=== PATIENT | male | born 1940 | race Caucasian/White ===

== ENCOUNTER 2018-10-20 17:54 | Emergency (ER) | payer MEDICARE ==
[~2018-10-20] VITALS: Ht 182.9 cm; Wt 89.4 kg
[~2018-10-20 17:54] MED LIST: ALBU90I INH; AMOCLA875 PO; ASPI81CH PO; ASPI81EC; ASPI81EC PO; ATOR10 PO; BACL10; CITA20; CITA20 PO; CLOP75 PO; CYCL10 PO; Carvedilol3.125 MG PO; DIPASPER; DIPASPER PO; DOC250 PO; DOCU100; DOCU100 PO; FERR325 PO; FURO20 PO; GABA300; GABA300 PO; GABA600 PO; INSN100I; INSN100I SC; INSR10I SC; INSU100I6 SC; INSULANPEN SC; LEVSOD100 PO; LISI10; LISI10 PO; LISI5 PO; METH10; METH10 PO; METO100ER PO; METO50ER; MIRT15 PO; MIRT30 PO; MORP15ER PO; MULVITA PO; MULVITMINE PO; Mucinex600 MG PO; OMEP20ER PO; OMEPRAZOLE MAGN20 MG PO; OXYC1L PO; OXYC5 PO; RANI150 PO; ROPI.25 PO; SENN187; SERT100 PO; SIMV20; SIMV20 PO; SIMV40 PO; SULI200; Senna Laxative8.6 MG PO; TERA2 PO; VARDENAFIL; Ventolin Soln3 ML INH; XOPENEX
[2018-10-20] MEDS ORDERED: ELIQUIS2.5 MG PO (18:13)
[2018-10-20] MEDS ORDERED: METF500 PO (18:14)
[2018-10-20] MEDS ORDERED: LEVSOD100 PO (18:16)
[2018-10-20] MEDS ORDERED: Cymbalta20 MG PT (18:16)
[2018-10-20 18:46] LABS: BASOPHILS ABSOLUTE AUTO 0.05 K/mm3 (0.00-0.23); BASOPHILS PERCENT AUTO 1 % (0-2); EOSINOPHILS ABSOLUTE AUTO 0.31 K/mm3 (0.00-0.68); EOSINOPHILS PERCENT AUTO 4 % (0-6); Hematocrit 31.2 % (37.0-53.0); Hemoglobin 10.3 g/dL (13.5-17.5); IMMATURE GRAN ABSOLUTE AUTO 0.04 K/mm3 (0.00-0.10); IMMATURE GRAN PERCENT AUTO 1 % (0-1); LYMPHOCYTES ABSOLUTE AUTO 2.81 K/mm3 (0.84-5.20); LYMPHOCYTES PERCENT AUTO 34 % (21-46); MONOCYTES ABSOLUTE AUTO 0.67 K/mm3 (0.16-1.47); MONOCYTES PERCENT AUTO 8 % (4-13); Mean Corpuscular HGB 30.7 pg (26.0-34.0); Mean Corpuscular Volume 93 fL (80-100); Mean Platelet Volume 10.8 fL (9.1-12.4); NEUTROPHILS ABSOLUTE AUTO 4.51 K/mm3 (1.96-9.15); NEUTROPHILS PERCENT AUTO 54 % (41-73); Platelet Count 214 K/mm3 (150-400); RDW Coefficient Variation 12.4 % (11.7-14.2); RDW Standard Deviation 42.5 fL (35.1-46.3); Red Blood Cell Count 3.36 M/mm3 (4.30-5.90); White Blood Cell Count 8.39 K/mm3 (4.00-11.30)
[2018-10-20 19:15] LABS: Alanine Aminotransfer (ALT/SGP 17 U/L (12-78); Albumin, Blood 3.4 g/dL (3.4-5.0); Albumin/Globulin Ratio 0.9 (0.8-1.8); Alk Phos 115 U/L (50-136); Anion Gap 7 mmol/L (6-16); Aspartate Aminotrans (AST/SGOT 17 U/L (12-37); Bilirubin, Total 0.3 mg/dL (0.1-1.0); Blood Urea Nitrogen 23 mg/dL (8-24); Bun/Creatinine Ratio 26.5 (12.0-20.0); CO2, Blood 27 mmol/L (21-32); Calcium, Blood 8.7 mg/dL (8.5-10.1); Chloride, Blood 102 mmol/L (98-108); Creatinine, Blood 0.87 mg/dL (0.60-1.20); Globulin, Blood 3.8 g/dL (2.2-4.0); Glomerular Filtration Rate >60 (60-); Glucose, Blood 539 mg/dL (70-99); Potassium, Blood 4.6 mmol/L (3.5-5.5); Sodium, Blood 136 mmol/L (136-145); Total Protein, Blood 7.2 g/dL (6.4-8.2)
== END 2018-10-20 21:47 | disposition home or self-care (01) ==
LOC: ER 17:54
PROVIDERS: Emergency Medicine
DX: M79.89 Other specified soft tissue disorders (principal); E11.9 Type 2 diabetes mellitus without complications; I11.0 Hypertensive heart disease with heart failure; I50.9 Heart failure, unspecified; D64.9 Anemia, unspecified; I25.10 Atherosclerotic heart disease of native coronary artery without angina pectoris; M79.622 Pain in left upper arm; Z95.0 Presence of cardiac pacemaker; Z88.6 Allergy status to analgesic agent; Z88.8 Allergy status to other drugs, medicaments and biological substances; Z91.048 Other nonmedicinal substance allergy status; Z79.4 Long term (current) use of insulin; Z79.899 Other long term (current) drug therapy; Z87.891 Personal history of nicotine dependence
CPT/HCPCS: 36415; 71260; 80053; 82947; 85025; 93005; 93010; 93971; 99284-25; J1815; Q9967

== ENCOUNTER 2020-01-02 03:30 | Inpatient (IN) | payer OTHER, MEDICARE ==
[~2020-01-02] VITALS: Ht 177.8 cm; Wt 90.7 kg
[~2020-01-02 03:30] MED LIST changes: +ALBU2.5V5 INH; -ATOR10 PO; +ATOR20 PO; +BASAGLAR K100 UNIT/1 SC; +Cymbalta20 MG PO; +ELIQUIS2.5 MG PO; +GUAI200 PO; +METF500 PO; -Mucinex600 MG PO; -Ventolin Soln3 ML INH
[2020-01-02 03:54] LABS: PCO2 Arterial 34.1 mmHg (35-45); PO2 Arterial 72.8 mmHg (80-100); pH Blood Arterial 7.37 (7.35-7.45)
[2020-01-02 04:00] LABS: BASOPHILS ABSOLUTE AUTO 0.05 K/mm3 (0.00-0.23); BASOPHILS PERCENT AUTO 0 % (0-2); EOSINOPHILS PERCENT AUTO 0 % (0-6); Hemoglobin 11.4 g/dL (13.5-17.5); IMMATURE GRAN ABSOLUTE AUTO 0.08 K/mm3 (0.00-0.10); IMMATURE GRAN PERCENT AUTO 1 % (0-1); LYMPHOCYTES ABSOLUTE AUTO 2.15 K/mm3 (0.84-5.20); LYMPHOCYTES PERCENT AUTO 12 % (21-46); MONOCYTES ABSOLUTE AUTO 2.07 K/mm3 (0.16-1.47); MONOCYTES PERCENT AUTO 12 % (4-13); Mean Corpuscular HGB 29.2 pg (26.0-34.0); Mean Corpuscular HGB Conc 31.7 g/dL (31.5-36.5); Mean Corpuscular Volume 92 fL (80-100); Mean Platelet Volume 11.6 fL (9.1-12.4); NEUTROPHILS ABSOLUTE AUTO 13.29 K/mm3 (1.96-9.15); NEUTROPHILS PERCENT AUTO 75 % (41-73); Platelet Count 297 K/mm3 (150-400); RDW Coefficient Variation 13.1 % (11.7-14.2); White Blood Cell Count 17.64 K/mm3 (4.00-11.30)
[2020-01-02 04:43] LABS: Albumin, Blood 3.3 g/dL (3.4-5.0); Albumin/Globulin Ratio 0.8 (0.8-1.8); Bilirubin, Total 0.6 mg/dL (0.1-1.0); Bun/Creatinine Ratio 44.7 (12.0-20.0); Calcium, Blood 9.8 mg/dL (8.5-10.1); Creatinine, Blood 1.59 mg/dL (0.60-1.20); Globulin, Blood 4.4 g/dL (2.2-4.0); Potassium, Blood 5.1 mmol/L (3.5-5.5); Total Protein, Blood 7.7 g/dL (6.4-8.2)
[2020-01-02 05:12] LABS: Influenza A, PCR Negative (NEGATIVE); Influenza B, PCR Negative (NEGATIVE); Resp Syncytial Virus, PCR Negative (NEGATIVE); SARS-Cov-2 (COVID-19) PCR, MMC Negative (NEGATIVE)
[2020-01-02 08:48] LABS: Glucose, Blood 1006 mg/dL (70-99)
[2020-01-02] MEDS ORDERED: METF500 PO (10:53)
[2020-01-02 10:57] LABS: Glucose, Blood 870 mg/dL (70-99)
[2020-01-02] MEDS ORDERED: FERSU300 PO (10:57)
[2020-01-02] MEDS ORDERED: FURO20 PO (10:58)
[2020-01-02 13:16] LABS: Glucose, Blood 641 mg/dL (70-99)
--- NOTE | 2020-01-02 15:51 | NUR ---
MED REC COMPLETE, DONE BY THIS RN WITH PATIENT'S SPOUSE OVER PHONE.
[2020-01-02 16:37] LABS: Glucose, Blood 484 mg/dL (70-99)
--- NOTE | 2020-01-02 17:14 | NUR ---
PATIENT ARRIVED TO UNIT SHORTLY BEFORE SHIFT CHANGE THIS MORNING. PATIENT IS CONFUSED, RESPONDS POSITIVELY BY NODDING TO YES OR NO QUESTIONS, DOES NOT RESPOND APPROPRIATELY. NON-REBREATHER APPLIED TO STOMA THIS SHIFT, ABLE TO TITRATE DOWN TO 1.5 L, RECEIVED BREATHING TREATMENTS PER RT. PATIENT DOES NOT APPEARIN ACUTE DISTRESS THIS SHIFT, VSS. PATIENT NPO, NO ABLE TO FOLLOW COMMANDS. PATIENT WILL SLIDE DOWN IN BED, HAS TRIED TO GET OUT OF BED AT TIMES, REDIRECTABLE. BED ALARM ON. PATIENT HYPERGLYCEMIC THIS SHIFT, 1006 BLOOD GLUCOSE PER LAB DRAW, NOW DOWN TO 400S. LACTIC ACID RETURNED TO NORMAL RANGE. ABRASION NOTED ON LEFT QURESHI, PER SPOUSE REPORT VIA PHONE THE PATIENT HAS BEEN FALLING A LOT RECENTLY.
--- NOTE | 2020-01-02 19:00 | NUR ---
OPENING NOTE RECEIVED REPORT FROM KADEEM RN AT THE BEDSIDE. PT IS RESTING, OPENS EYES TO VOICE, DOES NOT ATTEMPT TO VOCALIZE BUT SHAKES HEAD "YES" TO INTRODUCTION. TRACH COLLAR BLOWBY IN PLACE OVER STOMA WITH 1.5 L O2. NO ACUTE CONCERNS AT THIS TIME, WILL CONTINUE PLAN OF CARE AND CONTINUE TO MONITOR.
[2020-01-03 04:32] LABS: BASOPHILS ABSOLUTE AUTO 0.04 K/mm3 (0.00-0.23); BASOPHILS PERCENT AUTO 0 % (0-2); EOSINOPHILS ABSOLUTE AUTO 0.04 K/mm3 (0.00-0.68); EOSINOPHILS PERCENT AUTO 0 % (0-6); Hematocrit 32.2 % (37.0-53.0); Hemoglobin 10.5 g/dL (13.5-17.5); IMMATURE GRAN ABSOLUTE AUTO 0.05 K/mm3 (0.00-0.10); IMMATURE GRAN PERCENT AUTO 0 % (0-1); LYMPHOCYTES ABSOLUTE AUTO 2.24 K/mm3 (0.84-5.20); LYMPHOCYTES PERCENT AUTO 18 % (21-46); MONOCYTES ABSOLUTE AUTO 1.21 K/mm3 (0.16-1.47); MONOCYTES PERCENT AUTO 10 % (4-13); Mean Corpuscular HGB 29.3 pg (26.0-34.0); Mean Corpuscular HGB Conc 32.6 g/dL (31.5-36.5); Mean Corpuscular Volume 90 fL (80-100); Mean Platelet Volume 11.4 fL (9.1-12.4); NEUTROPHILS ABSOLUTE AUTO 8.67 K/mm3 (1.96-9.15); NEUTROPHILS PERCENT AUTO 71 % (41-73); Platelet Count 241 K/mm3 (150-400); RDW Coefficient Variation 13.1 % (11.7-14.2); RDW Standard Deviation 42.3 fL (35.1-46.3); Red Blood Cell Count 3.58 M/mm3 (4.30-5.90); White Blood Cell Count 12.25 K/mm3 (4.00-11.30)
--- NOTE | 2020-01-03 04:39 | NUR ---
COMMUNICATION TECHNICIAN SUMMARY NO ACUTE CHANGES THIS SHIFT. PT AAOX2, HAS DIFFICULTY SPEAKING AND COMMUNICATING NEEDS TO STAFF. CBG'S Q4H, LONG ACTING INSULIN HELD AT HS BY HEALTHCARE REPRESENTATIVESINA MCGOWAN PT CBG WAS DECREASING AND PT IS NPO. DID RECIEVE HS HUMALOG DOSE OF 7 UNITS WHICH BROUGHT CBG DOWN TO 150'S AT 0000. HELD MIDNIGHT DOSE OF HUMALOG CBG HAD SIGNIFICANT DECREASE SINCE HS AND PT REMIANS NPO, HOWEVER AT 0400 CBG 249 AND INSULIN GIVEN. PT CONTINUES TO HAVE LARGE AMOUNTS OF THICK SPUTUM PRODUCTION, ASSISTED WITH SUCTIONING OF LARYNGEAL STOMA. VSS, WILL CONTINUE TO MONITOR.
[2020-01-03 04:53] LABS: Bun/Creatinine Ratio 53.6 (12.0-20.0); Calcium, Blood 9.5 mg/dL (8.5-10.1); Creatinine, Blood 1.25 mg/dL (0.60-1.20); Potassium, Blood 3.8 mmol/L (3.5-5.5)
--- NOTE | 2020-01-03 10:13 | NUR ---
REPORT GIVEN TO ARAM ANDINO ON MEDICAL.
--- NOTE | 2020-01-03 11:26 | NUR ---
PATIENT ARRIVES ABOUT 1045 FROM PCU VIA W/C. MOUTH READS. SPEECH THERAPY TO EVAL AND CLEAN STOMA AREA. 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 LUNGS DIM T/O. OXYGEN CHANGED TO HUMIDIFIED. IV FLUIDS CHANGED TO MAINTENANCE FLUIDS 1/2 NS AT 50ML/HR. TINY SCABS T/O. COOPERATIVE. GIVEN SMALL WHITE BOARD TO WRITE ON. NPO.WCTM.
--- NOTE | 2020-01-03 16:29 | NUR ---
ALERT. ORIENTED SELF, WHERE HE IS AND FAMILY. GIVEN WHITE BOARD TO COMMUNICATE BUT DOES NOT WRITE VERY WELL. TRACHEAL ESOPHAGEAL VALVE NEEDS REPLACING AND WILL BE DONE IN [place] WHEN PATIENT STABLE. R.T. DOES DEEP TRACHEAL SUCTIONING. NG 16 POLISH PLACED AFTER RN UNABLE TO PLACE DOBHOFF. UNABLE TO HEAR AIR IN THRU TUBE, XRAY SHOWS OPENING LITTLE HIGH, SO ADVANCED LITTLE. ABLE TO HEAR AIR THRU TUBE AFTER ADVANCEMENT. XRAY REORDERED. HALI JAVA JSF DEVELOPER ORDERED TUBE FEEDING AND WILL START WHEN XRAY DONE. HUMIDIFIED OXYGEN TO STOMA. WCTM.
--- NOTE | 2020-01-03 19:25 | NUR ---
ASSUMED CARE RECEIVED REPORT FROM SINA BLAKELY. ASSUMED CARE OF PT. RESTING COMFORTABLY, NO S/S ACUTE DISTRESS NOTED. GLUCERNA 1.2 MOISÉS RUNNING AT 25ML/HR, NG TUBE IN PLACE. RESPS EVEN AND UNLABORED. PT DENIES NEEDS. CALL LIGHT, POSSESSIONS IN REACH, BED IN LOW POSITION WITH ALARMS ON. WCTM.
[2020-01-04 05:25] LABS: BASOPHILS ABSOLUTE AUTO 0.04 K/mm3 (0.00-0.23); BASOPHILS PERCENT AUTO 0 % (0-2); EOSINOPHILS ABSOLUTE AUTO 0.12 K/mm3 (0.00-0.68); EOSINOPHILS PERCENT AUTO 1 % (0-6); Hematocrit 34.1 % (37.0-53.0); Hemoglobin 10.6 g/dL (13.5-17.5); IMMATURE GRAN ABSOLUTE AUTO 0.09 K/mm3 (0.00-0.10); IMMATURE GRAN PERCENT AUTO 1 % (0-1); LYMPHOCYTES ABSOLUTE AUTO 2.91 K/mm3 (0.84-5.20); LYMPHOCYTES PERCENT AUTO 24 % (21-46); MONOCYTES ABSOLUTE AUTO 1.11 K/mm3 (0.16-1.47); MONOCYTES PERCENT AUTO 9 % (4-13); Mean Corpuscular HGB Conc 31.1 g/dL (31.5-36.5); Mean Corpuscular Volume 93 fL (80-100); Mean Platelet Volume 12.1 fL (9.1-12.4); NEUTROPHILS ABSOLUTE AUTO 7.83 K/mm3 (1.96-9.15); NEUTROPHILS PERCENT AUTO 65 % (41-73); Platelet Count 222 K/mm3 (150-400); RDW Coefficient Variation 13.3 % (11.7-14.2); RDW Standard Deviation 44.9 fL (35.1-46.3); Red Blood Cell Count 3.66 M/mm3 (4.30-5.90)
[2020-01-04 05:35] LABS: Anion Gap 5 mmol/L (6-16); Blood Urea Nitrogen 49 mg/dL (8-24); Bun/Creatinine Ratio 59.8 (12.0-20.0); CO2, Blood 27 mmol/L (21-32); Calcium, Blood 9.8 mg/dL (8.5-10.1); Chloride, Blood 123 mmol/L (98-108); Creatinine, Blood 0.82 mg/dL (0.60-1.20); Glomerular Filtration Rate >60 (60-); Glucose, Blood 250 mg/dL (70-99); Phosphorus, Blood 2.2 mg/dL (2.5-4.9); Potassium, Blood 3.8 mmol/L (3.5-5.5); Sodium, Blood 155 mmol/L (136-145)
--- NOTE | 2020-01-04 07:20 | NUR ---
SHIFT SUMMARY PT ASLEEP, NO S/S ACUTE DISTRESS NOTED. PT TOLERATED TF WELL T/O NIGHT, GLUCERNA 1.2 MOISÉS RUNNING AT 35ML/HR, NG TUBE REMAINS IN PLACE. VS REVIEWED, STABLE. CBGS STABLE IN THE 200'S, COVERED WITH INSULIN PER EMAR. PT MEDICATED X1 FOR PAIN WITH EFFECTIVE RELIEF. PT DENIES NEEDS AT THIS TIME. CALL LIGHT, POSSESSIONS IN REACH, BED IN LOW POSITION WITH ALARMS ON. REPORT GIVEN TO SINA BLAKELY.
--- NOTE | 2020-01-04 09:48 | NUR ---
TUBE FEEDING CHANGED TO 55ML/HR. PATIENT WANTS TO GO HOME. WHEN ASKED HOW HE IS GOING TO TAKE HIS MEDS, PATIENT MAKES A GESTURE THAT HE WILL TAKE BY MOUTH. EXPLAINED TO PATIENT THAT HIS ESOPHAGEAL VALVE IS LEAKING SO HE CAN'T. ANYTHING HE TAKES IN BY MOUTH MAY GO INTO HIS LUNGS. PATIENT SHAKES HIS HEAD NO. IS COMING IN. WILL CALL TO LET HIM KNOW .
--- NOTE | 2020-01-04 14:32 | NUR ---
REPORT GIVEN TO JILLIAN ANDINO AND MOVED TO [id number]. HAS ALSO ARRIVED. PATIENT WITH MULTIPLE FALLS AT HOME AND DOES NOT ASK FOR ASSISTANCE. PATIENT GETS OUT BED TO CHAIR AND BACK OFTEN WITH ALARMS GOING OFF. PATIENT DOES NOT LEAVE THE HOB AT 45 DEGREES OR HIGHER. RN LOCKS OUT PATIENT SIDE FROM MOVEMENT, BUT SOMEHOW PATIENT HAS BEEN ABLE TO CHANGE HOB ANGLE. FEELS PATIENT CAN NOT ASPIRATE EVEN WHEN FLAT DUE TO LARNGEAL ESOPHAHUS VALVE BEING IN PLACE. TO TALK TO . SPEECH THERAPY, STEFANO ERAZO, WILL COME UP AND ALSO TALK TO .
--- NOTE | 2020-01-04 17:25 | NUR ---
SHIFT SUMMARY: ASSUMED CARE OF PATIENT AT 1432 UPON HIS TRANSFER FROM BED 354. PT ALERT, NON VERBAL D/T LARYNGEAL RESECTION AND ELP; HAS DRY ERASE BOARD TO MAKE HIS NEEDS KNOWN. C/O PAIN IN HEAD AND CHEST; MEDICATED PER EMAR WITH ADEQUATE RELIEF. BREATH SOUNDS ARE VERY COARSE AND MOIST. WEARING O2 @ 2 L/MIN FROM TRACH MASK. HAS URINARY FREQUENCY, GETS UP OFTEN TO VOID. STRENGTH IS QUESTIONABLE, HAS FALLEN OFTEN AT HOME. TOLERATING TF, NO RESIDUAL. DECLINED OFFERED ASSISTANCE WITH ORAL CARE. EDUCATED PATIENT THAT IF HE RECEIVES NARCOTIC PAIN MEDS ON A REGULAR BASIS HE WILL BECOME MORE CONSTIPATED; NODDED IN AGREEMENT TO EXTRA BOWEL MEDS. IS RESTING AT THIS TIME.
--- NOTE | 2020-01-05 04:02 | NUR ---
SHIFT SUMMARY: VSS. AFEB. AAOX3. PT OPTING NOT TO USE WHITE BOARD TO COMMUNICATE, MOUTHS WORDS AND NODS "YES" OR "NO" TO QUESTIONS. USES CALL LIGHT OCCASIONALLY AND NOT RELIABLY. TF INFUSING CONTINUOUSLY VIA NGT. RESIDUAL 0MLS, TF INCREASED TO ORDER RATE OF 65MLS/HR. PT MANUEL WELL. 02 92% W/ 2L HUMIDIFIED 02 VIA TRACH. EXERTIONAL DYSPNEA NOTED EACH TIME PT STANDS AT BEDSIDE TO VOID. WET SOUNDING COUGH PRODUCING SMALL AMT OF YELLOW GREEN SPUTUM FROM STOMA SITE. PT IS CLEARING AIRWAY W/ STRONG COUGH, NO SUCTIONING OF AIRWAY NEEDED SO FAR TONIGHT. WILL CONT TO MONITOR PT.
[2020-01-05 05:28] LABS: Hematocrit 33.1 % (37.0-53.0); Mean Corpuscular HGB 28.4 pg (26.0-34.0); Mean Corpuscular HGB Conc 30.2 g/dL (31.5-36.5); Mean Corpuscular Volume 94 fL (80-100); Mean Platelet Volume 11.9 fL (9.1-12.4); Platelet Count 186 K/mm3 (150-400); RDW Coefficient Variation 13.5 % (11.7-14.2); RDW Standard Deviation 46.2 fL (35.1-46.3); Red Blood Cell Count 3.52 M/mm3 (4.30-5.90); White Blood Cell Count 8.73 K/mm3 (4.00-11.30)
[2020-01-05] MEDS ORDERED: MULVITA PO (05:33)
[2020-01-05] MEDS ORDERED: GLUCERNA PO (05:34)
[2020-01-05] MEDS ORDERED: NYSTATIN100000 UN1 PO (05:36)
[2020-01-05] MEDS ORDERED: MIRALAX17 GM PO (05:37)
[2020-01-05 05:50] LABS: Anion Gap 3 mmol/L (6-16); Blood Urea Nitrogen 34 mg/dL (8-24); Bun/Creatinine Ratio 50.1 (12.0-20.0); CO2, Blood 28 mmol/L (21-32); Calcium, Blood 9.2 mg/dL (8.5-10.1); Chloride, Blood 118 mmol/L (98-108); Creatinine, Blood 0.68 mg/dL (0.60-1.20); Glomerular Filtration Rate >60 (60-); Glucose, Blood 291 mg/dL (70-99); Potassium, Blood 3.7 mmol/L (3.5-5.5); Sodium, Blood 149 mmol/L (136-145)
--- NOTE | 2020-01-05 19:32 | NUR ---
SHIFT SUMMARY- PT IS A/O, PLESANT AND COOPERATIVE. HE IS NPO, RECIEVING FEEDINGS THROUGH THE NG TUBE. HE HAS A HARSH COUGH, CLEANED STOMA SEVERAL TIMES THIS SHIFT. HE RECIEVED SUCTION, LEFT SUCTION WITHIN PT REACH. HE IS USIING THE URINAL. PROVIDED BOWEL CARE. NO BM OF YET.
--- NOTE | 2020-01-06 04:57 | NUR ---
SHIFT SUMMARY: PT REFUSED INITIAL VS CHECK TONIGHT. AA0X3. REPORTING STOMACH TENDERNESS DUE TO NO CONSTIPATION. ENCOURAGED PT TO ACCEPT ENEMA, BUT HE REFUSED. PT DID REQUEST TO USE BSC AND PRODUCED AN XLG, DARK BROWN, SOFT BM. FEELING NAUSEAS AT THE TIME, ZOFRAN GIVEN W/ GOOD RESULTS, T/F PAUSED FOR 30MIN WHILE PT NAUSEAUS. RESUMED TF WITH NO RETURN OF NAUSEA. PT HAS SINCE BEEN SLEEPING. LSCTA. NO RESP DISTRESS. EXERTIONAL DYSPNEA. WET SOUNDING COUGH. OBSERVED YELLOW/GREEN TENACIOUS LOOKING SPUTUM APPEARING IN STOMA WHEN PT COUGHS, PT REFUSING SUCTIONING HOWEVER. LARGE AMT OF WHITE, THIN SPUTUM PRODUCED DURING COUGHING THAT OCCURRED WHILE PT TRANSFERRING FROM BED TO COMMODE. 2L HUMIDIFIED 02 VIA TRACH BLOW BY MASK. LOSES STRENGTH QUICKLY WHEN STANDING TO T/F. MOVES INDEPENDENTLY IN BED. NGT INTACT AND INFUSING GLUCERNA 1.2 MOISÉS. PT MANUEL WELL. 0MLS RESIDUAL. NO ACUTE CONCERNS AT THIS TIME. WILL CONT TO MONITOR.
--- NOTE | 2020-01-06 17:15 | NUR ---
SHIFT SUMMARY- PT IS A/O, PLESANT AND COOPERATIVE. HE IS DIFFICULT TO COMMUNICATE WITH DUE TO INABILITY TO SPEAK. SPOKE WITH HIS ON THE PHONE TO UPDATE TWICE. HE IS RECIEVING IV FLUIDS AND NUTRITION THROUGH THE NG TUBE. HE IS NPO AT THIS TIME. HE IS USING THE URINAL AT BEDSIDE.
--- NOTE | 2020-01-06 18:49 | NUR ---
SPOKE WITH DR. BARBER ABOUT PT FEELING DISTENDED IN HIS ABDOMEN, AND UNCOMFORTABLE. OK TO TURN OFF TUBE FEEDING OVERNIGHT.
--- NOTE | 2020-01-06 19:15 | NUR ---
ASSUMED CARE RECEIVED REPORT FROM SINA MORGAN. ASSUMED CARE OF PT. ATTEMPTING TO REST AT THIS TIME, NO S/S ACUTE DISTRESS NOTED. RT AT THE BEDSIDE PERFORMING TX. PT DENIES NEEDS AT THIS TIME. TF TURNED OFF PER ORDERS FROM DR. BARBER. IVF ONGOING. CALL LIGHT, POSSESSIONS IN REACH, BED IN LOW POSITION. WCTM.
--- NOTE | 2020-01-07 04:18 | NUR ---
SHIFT SUMMARY PT ASLEEP AT THIS TIME, NO S/S ACUTE DISTRESS NOTED. WAS MONITORED EVERY 1-2 HOURS WITH NEEDS MET. TUBE FEEDS OFF T/O NIGHT, NO C/O ABD DISCOMFORT OR N/V/D NOTED, BS+. TRACH STOMA PATENT, SUCTIONED C RAPHAEL PRN. MOIST, PRODUCTIVE COUGH CONTINUES. NG TUBE PATENT, FLUSHES EASILY, SECURED TO LT NARES, NO SIGNS OF MIGRATION OR ASPIRATION NOTED. VS REVIEWED, O2 SATS STABLE. CBGS STABILIZING. PT ABLE TO COMMUNICATE NEEDS WITH SIMPLE YES/NO QUESTIONS. PT DENIES NEEDS AT THIS TIME. CALL LIGHT, POSSESSIONS IN REACH, BED IN LOW POSITION WITH ALARMS ON. WCTM, REPORT OFF TO ONCOMING RN.
[2020-01-07 05:44] LABS: BASOPHILS ABSOLUTE AUTO 0.02 K/mm3 (0.00-0.23); BASOPHILS PERCENT AUTO 0 % (0-2); EOSINOPHILS ABSOLUTE AUTO 0.19 K/mm3 (0.00-0.68); EOSINOPHILS PERCENT AUTO 2 % (0-6); Hematocrit 32.1 % (37.0-53.0); IMMATURE GRAN ABSOLUTE AUTO 0.06 K/mm3 (0.00-0.10); IMMATURE GRAN PERCENT AUTO 1 % (0-1); LYMPHOCYTES ABSOLUTE AUTO 2.47 K/mm3 (0.84-5.20); LYMPHOCYTES PERCENT AUTO 28 % (21-46); MONOCYTES ABSOLUTE AUTO 0.72 K/mm3 (0.16-1.47); MONOCYTES PERCENT AUTO 8 % (4-13); Mean Corpuscular HGB 29.3 pg (26.0-34.0); Mean Corpuscular HGB Conc 31.2 g/dL (31.5-36.5); Mean Corpuscular Volume 94 fL (80-100); Mean Platelet Volume 11.5 fL (9.1-12.4); NEUTROPHILS ABSOLUTE AUTO 5.23 K/mm3 (1.96-9.15); NEUTROPHILS PERCENT AUTO 60 % (41-73); Platelet Count 165 K/mm3 (150-400); RDW Coefficient Variation 13.2 % (11.7-14.2); RDW Standard Deviation 45.1 fL (35.1-46.3); Red Blood Cell Count 3.41 M/mm3 (4.30-5.90); White Blood Cell Count 8.69 K/mm3 (4.00-11.30)
[2020-01-07 05:56] LABS: Anion Gap 3 mmol/L (6-16); Blood Urea Nitrogen 21 mg/dL (8-24); Bun/Creatinine Ratio 32.8 (12.0-20.0); CO2, Blood 32 mmol/L (21-32); Calcium, Blood 8.7 mg/dL (8.5-10.1); Chloride, Blood 115 mmol/L (98-108); Creatinine, Blood 0.64 mg/dL (0.60-1.20); Glomerular Filtration Rate >60 (60-); Glucose, Blood 146 mg/dL (70-99); Potassium, Blood 3.8 mmol/L (3.5-5.5); Sodium, Blood 150 mmol/L (136-145)
--- NOTE | 2020-01-07 18:08 | NUR ---
SHIFT SUMMARY PATIENT IS PLEASANT. STATED TODAY THAT HE WOULD PREFER TO GO HOME AND MAKE AN APPOINTMENT ON HIS OWN TO GO TO THE [facility] [place] TO HAVE HIS TEP CHANGED. HE DOES NOT THINK THAT IT IS A CONCERN. ALTHOUGH HE ASKED DR. BARBER IF HE COULD HAVE A PEPSI THE FORMULA HAD UPSET HIS STOMACH AND HAS NOT WANTED ANYTHING IN HIS TUBE TODAY. HE DID TAKE ONE SIP AND STARTED COUGHING UP SPUTUM. CALLED RESPIRATORY AND THEY SUCTIONED THE PATIENT. THEY GOT UP THICK, SINGH SPUTUM. HE WAS ABLE TO COUGH UP SOME PEPSI COLORED SPUTUM. HE NOW IS BACK TO NPO, DOES NOT WANT TO USE HIS TUBE BECAUSE HE HAD TWO XL BOWEL MOVEMENTS IN THE BEGINNING OF SHIFT. MOSTLY DIARHEA. HE WAS MILDLY DISTENDED BUT DOES FEEL BETTER. HE AT THIS TIME WANTS TO SLEEP AND WILL REEVALUATE HOW HE FEELS IN THE MORNING.
--- NOTE | 2020-01-07 19:15 | NUR ---
ASSUMED CARE RECEIVED REPORT FROM SINA GUEVARA. ASSUMED CARE OF PT. RESTING COMFORTABLY, NO S/S ACUTE DISTRESS NOTED. RESPS E/U. DENIES NEEDS. CALL LIGHT, POSSESSIONS IN REACH, [facility].
--- NOTE | 2020-01-08 03:48 | NUR ---
SHIFT SUMMARY PT ASLEEP, NO S/S ACUTE DISTRESS NOTED. WAS MONITORED EVERY 1-2 HOURS WITH NEEDS MET. VS REVIEWED, WNL. NO C/O SOB, DYSPNEA. PT SUCTIONED WITH RAPHAEL PRN. CONTINUES TO REFUSE TUBE FEEDS, BUT TOOK MEDICATIONS WITHOUT DIFFICULTY. CBGS STABLE, NO COVERAGE NEEDED T/O NIGHT. PT APPEARS WITHDRAWN, FRUSTRATED WITH CARES. PROVIDED LISTENING EAR AND ENCOURAGED PT TO EXPRESS FEELINGS. PT MOSTLY WANTED TO BE LEFT ALONE, BUT COOPERATIVE WITH CARES. DENIES PAIN OR NEEDS AT THIS TIME. CALL LIGHT, POSSESSIONS IN REACH, BED IN LOW POSITION WITH ALARMS ON. WCTM, REPORT OFF TO ONCOMING RN.
[2020-01-08 06:10] LABS: BASOPHILS ABSOLUTE AUTO 0.03 K/mm3 (0.00-0.23); BASOPHILS PERCENT AUTO 0 % (0-2); EOSINOPHILS ABSOLUTE AUTO 0.18 K/mm3 (0.00-0.68); EOSINOPHILS PERCENT AUTO 2 % (0-6); Hematocrit 30.7 % (37.0-53.0); Hemoglobin 9.8 g/dL (13.5-17.5); IMMATURE GRAN ABSOLUTE AUTO 0.06 K/mm3 (0.00-0.10); IMMATURE GRAN PERCENT AUTO 1 % (0-1); LYMPHOCYTES ABSOLUTE AUTO 2.28 K/mm3 (0.84-5.20); LYMPHOCYTES PERCENT AUTO 22 % (21-46); MONOCYTES ABSOLUTE AUTO 0.85 K/mm3 (0.16-1.47); MONOCYTES PERCENT AUTO 8 % (4-13); Mean Corpuscular HGB 29.8 pg (26.0-34.0); Mean Corpuscular HGB Conc 31.9 g/dL (31.5-36.5); Mean Corpuscular Volume 93 fL (80-100); Mean Platelet Volume 11.6 fL (9.1-12.4); NEUTROPHILS ABSOLUTE AUTO 7.12 K/mm3 (1.96-9.15); NEUTROPHILS PERCENT AUTO 68 % (41-73); Platelet Count 157 K/mm3 (150-400); RDW Standard Deviation 44.1 fL (35.1-46.3); Red Blood Cell Count 3.29 M/mm3 (4.30-5.90); White Blood Cell Count 10.52 K/mm3 (4.00-11.30)
[2020-01-08 06:29] LABS: Anion Gap 3 mmol/L (6-16); Blood Urea Nitrogen 16 mg/dL (8-24); Bun/Creatinine Ratio 25.2 (12.0-20.0); CO2, Blood 31 mmol/L (21-32); Calcium, Blood 8.6 mg/dL (8.5-10.1); Chloride, Blood 113 mmol/L (98-108); Creatinine, Blood 0.63 mg/dL (0.60-1.20); Glomerular Filtration Rate >60 (60-); Glucose, Blood 134 mg/dL (70-99); Potassium, Blood 3.9 mmol/L (3.5-5.5); Sodium, Blood 147 mmol/L (136-145)
--- NOTE | 2020-01-08 08:53 | NUR ---
TUBE CHECK THIS AM- 01/08/20 NASOGASTRIC TUBE CHECKED THIS MORNING. ASPIRATED CONTENTS PRIOR TO ANY PUSHES. PATIENT HAD SINGH FLUID FROM HIS TUBE. PUSHED AIR AND LISTENED TO HEAR GURGLING IN THE STOMACH. PUSHED 20ML OF WATER AND WAITED FOR PATIENT TO TOLERATE. NO CONCERNS. MEDICATIONS GIVEN AFTER ANOTHER FLUSH. THEN FLUSHED WITH MORE WATER. NO CONCERNS WITH TUBE OR PATIENT. PATIENT HOB DURING FLUSH AND PUSH 45. PATIENT DID MOVE HIMSELF BACK DOWN IN BED.
--- NOTE | 2020-01-08 11:59 | NUR ---
According to the patient was to have eliquis every single day with no breaks to have his cardioversion. The patient's is unhappy stating that we did not tell her about the new visiting hours. She states that there should be no specific time that she should beable to come in and see her because they live together. She states that she feels that she has been kept in the dark about her patient's condition. The patient is about to have his water hooked up. he states that it is too loud in the room and that he is still keeping the door closed.
--- NOTE | 2020-01-09 04:22 | NUR ---
SEED CUTTER SUMMARY H[place] [facility] [place]PO STATUS, DR. MADERA NOTIFIED. PT WAS IS A GOOD MOOD ALL SHIFT AND WAS ABLE TO COMMUNICATE EFFECTIVELY NONVERBALLY. TUBE FEEDINGS STILL BEING HELD PER PT REFUSAL AND CBG Q6H W NO COVERAGE NEEDED, BG STABLE. PT HAS INCREASED SECRETIONS IN STOMA BUT DID NOT WANT RT TO COME PERFORM SUCTIONING HE SAID THEY WENT TOO DEEP EARLIER CAUSING PAIN. O2 SATS >90 W TRACH COLLAR ON 2L O2. MEDS GIVEN PER NG TUBE W NO S/S OF ASPIRATION, WCTM.
--- NOTE | 2020-01-10 02:39 | NUR ---
PT PULLED OUT NG TUBE PT PULLED OUT NG TUBE. CHARGE INFORMED. SPOUSE CALLED ME EARLIER THIS SHIFT TO INFORM ME THAT THE PT IS LEAVING AT 0800 HRS THIS MORNING. WE WILL INFORM THE HOSPITALIST OF THIS WITH THE NEXT ROUND OF PHONE CALLS. D5 W/ 1/2 NS STILL INFUSING AT THIS TIME.
--- NOTE | 2020-01-10 03:59 | NUR ---
SHIFT SUMMARY ADMITTED FOR ACUTE RESP FAILURE. FULL CODE. SPOUSE CALLED THIS SHIFT TO LEAVE MESSAGE THAT SHE WILL BE PICKING THE PT UP AT 8 AM FOR A PROCEDURE SCHEDULED AT THE [facility]. SHE DID NOT ANSWER WHEN I ATTEMPTED TO CALL BACK. PT ACCIDENTALY PULLED OUT HIS NG TUBE. CHARGE INFORMED. D5 W/ 1/2 NS IS INFUSING @ 75 ML/HR. I DID SUCTION STOMA AT THE SURFACE ONE TIME THIS SHIFT. 4 LPM O2 VIA TRACH COLLAR. Q6 GLUCOSE CHECKS WHILE NPO. PT HAS BEEN EXPERIENCING DIARRHEA, BOWEL CARE HELD. POWERGLIDE IN RUBI. CARE MANAGEMENT HAS BEEN WORKING WITH SPOUSE ON MAKING ARRANGEMENTS. ELLIQUIS IS BEING HELD AT THIS TIME DUE TODAY'S PROCEDURE
--- NOTE | 2020-01-10 06:46 | NUR ---
CALLED HOSPITALIST HOSPITALIST INFORMED OF NG REMOVAL. HOSPITALIST STATES WE CAN LEAVE OUT THE NG TUBE PT IS DC'ING THIS MORNING
[2020-01-10] MEDS ORDERED: ACET325 PO (07:54)
[2020-01-10 09:04] LABS: Influenza A, PCR Negative (NEGATIVE); Influenza B, PCR Negative (NEGATIVE); Resp Syncytial Virus, PCR Negative (NEGATIVE); SARS-Cov-2 (COVID-19) PCR, MMC Negative (NEGATIVE)
--- NOTE | 2020-01-10 09:41 | NUR ---
DISCHARGE DISCHARGE INSTRUCTIONS EXPLAINED TO PATIENT AND . THEY STATED UNDERSTANDING. PATIENT BEING TRANSPORTED TO [facility] BY AND FAMILY FOR VOICE PROSTHESIS PROCEDURE. IV REMOVED WITHOUT ISSUE. BELONGINGS WITH PATIENT. PATIENT'S BROUGHT PORTABLE OXYGEN FROM HOME. TRANSFERED TO PRIVATE VEHICLE VIA WHEELCHAIR.
== END 2020-01-10 08:59 | disposition home health service (06) | DRG 205 ==
LOC: ER 03:30 → MEDS 05:41 → PCU 05:41 → MEDS 01-03 10:25
PROVIDERS: Emergency Medicine; Internal Medicine; ADMIT Internal Medicine
PROC: 0DH67UZ Insertion of Feeding Device into Stomach, Via Natural or Artificial Opening (ICD-10-PCS; principal; 2020-01-02)
PROC: 3E0G76Z Introduction of Nutritional Substance into Upper GI, Via Natural or Artificial Opening (ICD-10-PCS; 2020-01-02)
DX: J95.03 Malfunction of tracheostomy stoma (principal); J96.01 Acute respiratory failure with hypoxia; A41.89 Other specified sepsis; R65.20 Severe sepsis without septic shock; T85.698A Other mechanical complication of other specified internal prosthetic devices, implants and grafts, initial encounter; E87.0 Hyperosmolality and hypernatremia; I50.42 Chronic combined systolic (congestive) and diastolic (congestive) heart failure; I48.20 Chronic atrial fibrillation, unspecified; N17.9 Acute kidney failure, unspecified; I11.0 Hypertensive heart disease with heart failure; Z85.21 Personal history of malignant neoplasm of larynx; I25.10 Atherosclerotic heart disease of native coronary artery without angina pectoris; Z95.810 Presence of automatic (implantable) cardiac defibrillator; D63.8 Anemia in other chronic diseases classified elsewhere; Z87.891 Personal history of nicotine dependence; Z79.01 Long term (current) use of anticoagulants; Z79.4 Long term (current) use of insulin; Z95.1 Presence of aortocoronary bypass graft; E11.65 Type 2 diabetes mellitus with hyperglycemia; E86.0 Dehydration
CPT/HCPCS: 0241U; 31720; 36415; 36600; 71045; 71046; 74176; 80048; 80053; 82803; 82947; 83605; 83690; 83735; 84100; 84145; 85025; 85027; 87040; 87070; 87077; 87106; 87186; 87205; 92526; 92610; 94640; 94760; 94762; 97110; 97162; 97166; 97530; 99285-25; A9270; A9270-GY; C1751; J0456; J0696; J1450; J1650; J2405; J7030; J7040; J7042; J7050

== ENCOUNTER → 2022-05-13 | Outpatient (CLI) | payer OTHER ==
[~2022-05-13] MED LIST changes: +ACET325 PO; +Amiodarone HCl200 MG PO; +Bactrim Ds Tab1 EACH PO; +CEFD300 PO; +FERSU300 PO; +GLUCERNA PO; +MAGNESIUM OXID500 MG; +MIRALAX17 GM PO; +NYSTATIN100000 UN1 PO; +PANT40
== END | disposition home or self-care (01) ==
LOC: LAB 12:48 → LAB SHORT 12:48
DX: N39.0 Urinary tract infection, site not specified (principal)
CPT/HCPCS: 87086

== ENCOUNTER 2022-06-11 10:47 | Emergency (ER) | payer OTHER ==
[~2022-06-11] VITALS: Ht 185.4 cm; Wt 77.1 kg
[2022-06-11 11:09] LABS: BASOPHILS ABSOLUTE AUTO 0.02 K/mm3 (0.00-0.23); BASOPHILS PERCENT AUTO 0 % (0-2); EOSINOPHILS ABSOLUTE AUTO 0.19 K/mm3 (0.00-0.68); EOSINOPHILS PERCENT AUTO 2 % (0-6); Hematocrit 34.6 % (37.0-53.0); Hemoglobin 11.3 g/dL (13.5-17.5); IMMATURE GRAN ABSOLUTE AUTO 0.02 K/mm3 (0.00-0.10); IMMATURE GRAN PERCENT AUTO 0 % (0-1); LYMPHOCYTES ABSOLUTE AUTO 4.02 K/mm3 (0.84-5.20); LYMPHOCYTES PERCENT AUTO 45 % (21-46); MONOCYTES ABSOLUTE AUTO 0.65 K/mm3 (0.16-1.47); MONOCYTES PERCENT AUTO 7 % (4-13); Mean Corpuscular HGB 31.2 pg (26.0-34.0); Mean Corpuscular HGB Conc 32.7 g/dL (31.5-36.5); Mean Corpuscular Volume 96 fL (80-100); Mean Platelet Volume 10.8 fL (9.1-12.4); NEUTROPHILS PERCENT AUTO 45 % (41-73); Platelet Count 192 K/mm3 (150-400); RDW Coefficient Variation 14.5 % (11.7-14.2); RDW Standard Deviation 50.3 fL (35.1-46.3); Red Blood Cell Count 3.62 M/mm3 (4.30-5.90)
[2022-06-11] MEDS ORDERED: METO25ER PO (11:23)
[2022-06-11] MEDS ORDERED: FLUC200 PO (11:24)
[2022-06-11] MEDS ORDERED: TAMS.4ER PO (11:25)
[2022-06-11] MEDS ORDERED: FURO20 PO (11:25)
[2022-06-11] MEDS ORDERED: MIRT30 PO (11:26)
[2022-06-11 11:27] LABS: Albumin, Blood 2.8 g/dL (3.4-5.0); Albumin/Globulin Ratio 0.7 (0.8-1.8); Bilirubin, Total 0.7 mg/dL (0.1-1.0); Bun/Creatinine Ratio 35.3 (12.0-20.0); Calcium, Blood 8.8 mg/dL (8.5-10.1); Creatinine, Blood 0.74 mg/dL (0.60-1.20); Globulin, Blood 3.9 g/dL (2.2-4.0); Magnesium, Blood 2.1 mg/dL (1.6-2.4); Potassium, Blood 5.4 mmol/L (3.5-5.5); Total Protein, Blood 6.7 g/dL (6.4-8.2)
[2022-06-11] MEDS ORDERED: ATOR20 PO (11:27)
[2022-06-11] MEDS ORDERED: FLUT1DIS5 INH (11:27)
[2022-06-11] MEDS ORDERED: IPRAT-ALBUT 0.5-3 ML IH (11:28)
[2022-06-11] MEDS ORDERED: OXYC5 PO (14:47)
[2022-06-11 15:30] VITALS: BP 112/73
== END 2022-06-11 15:55 | disposition home or self-care (01) ==
LOC: ER 10:47
PROVIDERS: Student in an Organized Health Care Education/Training Program
DX: R07.89 Other chest pain (principal); E11.649 Type 2 diabetes mellitus with hypoglycemia without coma; Z88.8 Allergy status to other drugs, medicaments and biological substances; Z91.048 Other nonmedicinal substance allergy status; Z88.6 Allergy status to analgesic agent; Z79.899 Other long term (current) drug therapy; Z79.4 Long term (current) use of insulin; Z79.84 Long term (current) use of oral hypoglycemic drugs; I11.0 Hypertensive heart disease with heart failure; I25.10 Atherosclerotic heart disease of native coronary artery without angina pectoris; I50.9 Heart failure, unspecified; Z87.891 Personal history of nicotine dependence
CPT/HCPCS: 71046; 80053; 82947; 83735; 84484; 85025; 93005; 93010; A9270; J1885

== ENCOUNTER 2022-08-22 13:58 | Emergency (ER) | payer OTHER ==
[~2022-08-22] VITALS: Ht 170.2 cm; Wt 59.0 kg
[~2022-08-22 13:58] MED LIST changes: +FLUC200 PO; +FLUT1DIS5 INH; +IPRAT-ALBUT 0.5-3 ML IH; +METO25ER PO; +TAMS.4ER PO
[2022-08-22] MEDS ORDERED: CEPH500 PO (16:37)
[2022-08-22 16:45] VITALS: BP 122/73
[2022-08-22] MEDS ORDERED: Percocet 5-3251 EACH PO (16:51)
== END 2022-08-22 17:03 | disposition home or self-care (01) ==
LOC: ER 13:58
DX: S71.111A Laceration without foreign body, right thigh, initial encounter (principal); Z23 Encounter for immunization; V84.9XXA Unspecified occupant of special agricultural vehicle injured in nontraffic accident, initial encounter; Z88.6 Allergy status to analgesic agent; Z88.1 Allergy status to other antibiotic agents; Z91.040 Latex allergy status; Z88.8 Allergy status to other drugs, medicaments and biological substances; Z79.01 Long term (current) use of anticoagulants; Z79.899 Other long term (current) drug therapy; Z79.890 Hormone replacement therapy; Z79.4 Long term (current) use of insulin; Z79.2 Long term (current) use of antibiotics; I11.0 Hypertensive heart disease with heart failure; I50.9 Heart failure, unspecified; E11.9 Type 2 diabetes mellitus without complications; Z95.0 Presence of cardiac pacemaker; Z87.891 Personal history of nicotine dependence
CPT/HCPCS: 12002; 90471; 90714; 96374-59; 99283-25; A9270; J0690

== ENCOUNTER 2023-06-08 15:02 | Emergency (ER) | payer OTHER ==
[~2023-06-08] VITALS: Ht 182.9 cm; Wt 70.5 kg
[~2023-06-08 15:02] MED LIST changes: +CEFP200 PO; +CEPH500 PO; +DOXY100 PO; +Lasix20 MG PO; +Percocet 5-3251 EACH PO; +Vibramycin100 MG PO
[2023-06-08 18:03] LABS: Hematocrit 28.5 % (37.0-53.0); Hemoglobin 9.5 g/dL (13.5-17.5); Mean Corpuscular HGB Conc 33.3 g/dL (31.5-36.5); Mean Corpuscular Volume 93 fL (80-100); Mean Platelet Volume 9.5 fL (9.1-12.4); Platelet Count 225 K/mm3 (150-400); Red Blood Cell Count 3.06 M/mm3 (4.30-5.90); White Blood Cell Count 7.81 K/mm3 (4.00-11.30)
[2023-06-08 18:26] LABS: Bun/Creatinine Ratio 14.9 (12.0-20.0); Creatinine, Blood 0.87 mg/dL (0.60-1.20); Potassium, Blood 4.2 mmol/L (3.5-5.5)
[2023-06-08 19:01] LABS: BAND PERCENT MAN 2 % (0-8); BASOPHILS PERCENT MAN 0 % (0-2); EOSINOPHILS ABSOLUTE MAN 0.15 K/mm3 (0.00-0.68); EOSINOPHILS PERCENT MAN 2 % (0-6); LYMPHOCYTES PERCENT MAN 41 % (21-46); MONOCYTES ABSOLUTE MAN 0.46 K/mm3 (0.16-1.47); MONOCYTES PERCENT MAN 6 % (4-13); NEUTROPHILS ABSOLUTE MAN 3.98 K/mm3 (1.96-9.15); SEG NEUTROPHILS PERCENT MAN 49 % (41-73); TOTAL CELLS COUNTED 100
[2023-06-08 19:15] VITALS: BP 109/66
== END 2023-06-08 19:32 | disposition home or self-care (01) ==
LOC: ER 15:02
PROVIDERS: Emergency Medicine
DX: J95.01 Hemorrhage from tracheostomy stoma (principal); D68.9 Coagulation defect, unspecified; I48.91 Unspecified atrial fibrillation; Z88.8 Allergy status to other drugs, medicaments and biological substances; Z88.6 Allergy status to analgesic agent; Z88.1 Allergy status to other antibiotic agents; Z91.040 Latex allergy status; Z91.048 Other nonmedicinal substance allergy status; Z79.899 Other long term (current) drug therapy; Z79.4 Long term (current) use of insulin; Z79.84 Long term (current) use of oral hypoglycemic drugs; I48.0 Paroxysmal atrial fibrillation; I10 Essential (primary) hypertension; K21.9 Gastro-esophageal reflux disease without esophagitis; E11.9 Type 2 diabetes mellitus without complications; F17.210 Nicotine dependence, cigarettes, uncomplicated
CPT/HCPCS: 80048; 85025; 99284-25

== ENCOUNTER 2023-07-13 23:54 | Emergency (ER) | payer OTHER ==
[~2023-07-13] VITALS: Ht 182.9 cm; Wt 69.8 kg
[2023-07-14 00:52] LABS: BASOPHILS ABSOLUTE AUTO 0.04 K/mm3 (0.00-0.23); BASOPHILS PERCENT AUTO 0 % (0-2); EOSINOPHILS ABSOLUTE AUTO 0.14 K/mm3 (0.00-0.68); EOSINOPHILS PERCENT AUTO 1 % (0-6); Hematocrit 32.6 % (37.0-53.0); IMMATURE GRAN ABSOLUTE AUTO 0.05 K/mm3 (0.00-0.10); IMMATURE GRAN PERCENT AUTO 1 % (0-1); LYMPHOCYTES ABSOLUTE AUTO 3.84 K/mm3 (0.84-5.20); LYMPHOCYTES PERCENT AUTO 37 % (21-46); MONOCYTES ABSOLUTE AUTO 0.84 K/mm3 (0.16-1.47); MONOCYTES PERCENT AUTO 8 % (4-13); Mean Corpuscular HGB 30.5 pg (26.0-34.0); Mean Corpuscular HGB Conc 33.7 g/dL (31.5-36.5); Mean Corpuscular Volume 90 fL (80-100); Mean Platelet Volume 10.1 fL (9.1-12.4); NEUTROPHILS ABSOLUTE AUTO 5.51 K/mm3 (1.96-9.15); NEUTROPHILS PERCENT AUTO 53 % (41-73); Platelet Count 227 K/mm3 (150-400); RDW Coefficient Variation 13.2 % (11.7-14.2); RDW Standard Deviation 43.8 fL (35.1-46.3); Red Blood Cell Count 3.61 M/mm3 (4.30-5.90); White Blood Cell Count 10.42 K/mm3 (4.00-11.30)
[2023-07-14 01:26] LABS: Albumin, Blood 3.3 g/dL (3.4-5.0); Albumin/Globulin Ratio 0.9 (0.8-1.8); Bilirubin, Total 0.3 mg/dL (0.1-1.0); Bun/Creatinine Ratio 20.2 (12.0-20.0); Calcium, Blood 9.1 mg/dL (8.5-10.1); Creatinine, Blood 0.69 mg/dL (0.60-1.20); Globulin, Blood 3.6 g/dL (2.2-4.0); Potassium, Blood 4.9 mmol/L (3.5-5.5); Total Protein, Blood 6.9 g/dL (6.4-8.2)
[2023-07-14] MEDS ORDERED: NS 1,000 ML IV SCH (06:20)
[2023-07-14] MEDS ORDERED: Cefpodoxime Proxetil 200 MG Tab PO ONE (06:20)
[2023-07-14 08:30] VITALS: BP 128/69
== END 2023-07-14 08:47 | disposition home or self-care (01) ==
LOC: ER 23:54
PROVIDERS: Physician Assistant
DX: N39.0 Urinary tract infection, site not specified (principal); E86.0 Dehydration; E11.65 Type 2 diabetes mellitus with hyperglycemia; F17.210 Nicotine dependence, cigarettes, uncomplicated; I10 Essential (primary) hypertension; K21.9 Gastro-esophageal reflux disease without esophagitis; K22.10 Ulcer of esophagus without bleeding; I48.91 Unspecified atrial fibrillation; Z79.84 Long term (current) use of oral hypoglycemic drugs; Z79.4 Long term (current) use of insulin; Z79.899 Other long term (current) drug therapy; Z79.51 Long term (current) use of inhaled steroids; Z88.0 Allergy status to penicillin; Z88.6 Allergy status to analgesic agent; Z91.040 Latex allergy status; Z88.5 Allergy status to narcotic agent; Z88.8 Allergy status to other drugs, medicaments and biological substances; Z88.1 Allergy status to other antibiotic agents
CPT/HCPCS: 51798; 80053; 82947; 85025; 96360; 96361; 99283; A9270; J7030

== ENCOUNTER 2023-09-04 18:39 | Emergency (ER) | payer OTHER ==
[~2023-09-04] VITALS: Ht 182.9 cm; Wt 68.0 kg
[~2023-09-04 18:39] MED LIST changes: +ALEVAZOL56.7 G1 TOP; +Acetic Acid1000 ML XX; +BACTRIM DS TAB1 EAC6 PO; +BISA10S PR; +CIPR500 PO; +DEXT40GEL PO; -ELIQUIS2.5 MG PO; +ELIQUIS5 M2 PO; +Elmiron100 MG PO; +HUMALOG KW100 UNIT/1 SC; -IPRAT-ALBUT 0.5-3 ML IH; +IPRAT-ALBUT 0.5-3 ML INH; +LACT PO; +LIDOCAINE HCL TOP; +MAGCIT300 PO; +MEGESTROL ACETA20 M1 PO; +ONDA4ODT MM; -PANT40; +PANT40 PO; +PROCEL PO; +PSYLLIUM PO; +TOLT4 PO; +Vitamin D1000 UNI1 PO
[2023-09-04 19:28] LABS: BASOPHILS ABSOLUTE AUTO 0.04 K/mm3 (0.00-0.23); BASOPHILS PERCENT AUTO 0 % (0-2); EOSINOPHILS PERCENT AUTO 2 % (0-6); Hematocrit 29.4 % (37.0-53.0); Hemoglobin 9.5 g/dL (13.5-17.5); IMMATURE GRAN ABSOLUTE AUTO 0.09 K/mm3 (0.00-0.10); IMMATURE GRAN PERCENT AUTO 1 % (0-1); LYMPHOCYTES ABSOLUTE AUTO 4.83 K/mm3 (0.84-5.20); LYMPHOCYTES PERCENT AUTO 44 % (21-46); MONOCYTES ABSOLUTE AUTO 0.96 K/mm3 (0.16-1.47); MONOCYTES PERCENT AUTO 9 % (4-13); Mean Corpuscular HGB 30.4 pg (26.0-34.0); Mean Corpuscular HGB Conc 32.3 g/dL (31.5-36.5); Mean Corpuscular Volume 94 fL (80-100); Mean Platelet Volume 10.3 fL (9.1-12.4); NEUTROPHILS PERCENT AUTO 45 % (41-73); Platelet Count 306 K/mm3 (150-400); RDW Standard Deviation 54.8 fL (35.1-46.3); Red Blood Cell Count 3.13 M/mm3 (4.30-5.90); White Blood Cell Count 11.02 K/mm3 (4.00-11.30)
[2023-09-04 19:44] LABS: Albumin, Blood 2.6 g/dL (3.4-5.0); Albumin/Globulin Ratio 0.6 (0.8-1.8); Bilirubin, Total 0.5 mg/dL (0.1-1.0); Bun/Creatinine Ratio 34.2 (12.0-20.0); Calcium, Blood 8.9 mg/dL (8.5-10.1); Creatinine, Blood 0.64 mg/dL (0.60-1.20); Potassium, Blood 4.4 mmol/L (3.5-5.5); Total Protein, Blood 6.6 g/dL (6.4-8.2)
[2023-09-04] MEDS ORDERED: Lidocaine 2% Jelly Uro-Jet TOP ONE (19:45)
[2023-09-04 22:17] LABS: Source, Urine Fem Cath
[2023-09-04 22:21] LABS: Appearance, Urine Hazy (Clear); Blood, Urine 5+ (Neg); Color, Urine Brown (P-Yellow); Glucose Qualitative, Urine Neg (Neg); Ketones, Urine 2+ (Neg); Leukocyte Esterase, Urine 3+ (Neg); Nitrite, Urine Pos (Neg); Protein, Urine 3+ (Neg); Urobilinogen, Urine 1+ (Normal)
[2023-09-04] MEDS ORDERED: ELIQUIS2.5 MG PO (23:11)
[2023-09-04] MEDS ORDERED: TOLT4 PO (23:14)
[2023-09-04 23:21] LABS: Bilirubin, Urine 1+ (Neg)
[2023-09-04 23:22] LABS: Bacteria Many /hpf; Red Blood Cells, Urine TNTC /hpf (0-2); Squamous Epithelial Cells Few /hpf (Few); White Blood Cells, Urine TNTC /hpf (0-5)
[2023-09-05] VITALS: BP 114/66
== END 2023-09-05 00:36 | disposition home or self-care (01) ==
LOC: ER 18:39
PROVIDERS: Emergency Medicine
DX: N39.0 Urinary tract infection, site not specified (principal); Z88.0 Allergy status to penicillin; Z88.1 Allergy status to other antibiotic agents; Z88.6 Allergy status to analgesic agent; Z91.048 Other nonmedicinal substance allergy status; Z91.040 Latex allergy status; Z79.899 Other long term (current) drug therapy; Z79.4 Long term (current) use of insulin; E11.9 Type 2 diabetes mellitus without complications; I11.0 Hypertensive heart disease with heart failure; I50.9 Heart failure, unspecified; I48.91 Unspecified atrial fibrillation; Z87.891 Personal history of nicotine dependence
CPT/HCPCS: 31720; 51702; 80053; 81001; 85025; 87086; 87106; 99284